=== PATIENT | male | born 1995 | race Caucasian/White ===

== ENCOUNTER 2020-12-06 17:48 | Emergency (ER) | payer SELFPAY ==
[~2020-12-06] VITALS: Ht 180.3 cm; Wt 110.4 kg
[2020-12-06 17:48] VITALS: BP 147/69
== END 2020-12-06 18:10 | disposition left against medical advice (07) ==
LOC: M ED 17:48
DX: Z53.21 Procedure and treatment not carried out due to patient leaving prior to being seen by health care provider (principal)